=== PATIENT | male | born 1945 | race Caucasian/White ===

== ENCOUNTER 2018-07-14 11:22 | Emergency (ER) | payer MEDICARE ==
[2018-07-14 11:55] LABS: BASOPHILS % (AUTO) 0.3 %; EOSINOPHILS % (AUTO) 0.7 %; HGB - HEMOGLOBIN 14.7 g/dL (14.0-18.0); LYMPHOCYTES # (AUTO) 1.1 10^3/uL (1.5-3.5); LYMPHOCYTES % (AUTO) 17.3 %; MEAN CORPUSCULAR HEMOGLOBIN 33.5 pg (27.0-31.0); MEAN CORPUSCULAR HGB CONC 33.7 g/dL (32.0-36.0); MEAN CORPUSCULAR VOLUME 99.4 fL (80.0-94.0); MEAN PLATELET VOLUME 7.6 fL (7.4-11.4); MONOCYTES # (AUTO) 0.5 10^3/uL (0.0-1.0); NEUTROPHILS # (AUTO) 4.6 10^3/uL (1.5-6.6); NEUTROPHILS % (AUTO) 73.7 %; PLT - PLATELET COUNT 202 10^3/uL (130-450); RED BLOOD COUNT 4.39 10^6/uL (4.70-6.10); RED CELL DISTRIBUTION WIDTH 14.4 % (12.0-15.0); WHITE BLOOD COUNT 6.2 x10^3/uL (4.8-10.8)
[2018-07-14 12:05] LABS: ALBUMIN 4.5 g/dL (3.2-5.5); ALBUMIN/GLOBULIN RATIO 1.3 (1.0-2.2); BILIRUBIN,TOTAL 0.9 mg/dL (0.2-1.0); CALCIUM 9.4 mg/dL (8.5-10.3); TOTAL PROTEIN 7.9 g/dL (6.7-8.2)
--- NOTE | 2018-07-14 12:39 | XRAY Report ---
Reason: sob Procedure Date: 07/14/2018 Accession Number: [id number] / [id number] Procedure: XR - Chest 2 View X-Ray CPT Code: 31524 FULL RESULT: EXAM: CHEST RADIOGRAPHY EXAM DATE: 07/14/2018 12:13 PM. CLINICAL HISTORY: Shortness of breath. COMPARISON: None. TECHNIQUE: 2 views. FINDINGS: Lungs/Pleura: No focal opacities evident. No pleural effusion. No pneumothorax. Normal volumes. Mediastinum: Heart and mediastinal contours are unremarkable. Other: None. IMPRESSION: No acute cardiopulmonary abnormality. [facility]
--- NOTE | 2018-07-14 12:44 | ED Physician Documentation ---
History of Present Illness - Stated complaint Stated Complaint: SOA - Chief complaint Chief Complaint: Cardiac - History obtained from History obtained from: Patient - History of Present Illness Timing: Today Pain level max: 0 Pain level now: 0 Improved by: nothing Worsened by: nothing - Additonal information Additional information: Patient is a 72-year-old male who presents to the emergency department stating that he has felt short of breath and unable to exert himself fully for the past several days. Checked his heart rate today and it was in the 30s. No home medications. No syncope. Review of Systems Ten Systems: 10 systems reviewed and negative Constitutional: denies: Fever, Chills Ears: denies: Ear pain Nose: denies: Rhinorrhea / runny nose, Congestion Throat: denies: Sore throat Cardiac: denies: Chest pain / pressure Respiratory: denies: Cough GI: denies: Nausea, Vomiting, Diarrhea Skin: denies: Rash Musculoskeletal: denies: Neck pain, Back pain Neurologic: denies: Headache PD PAST MEDICAL HISTORY - Past Medical History Past Medical History: No Cardiovascular: Other - Past Surgical History Past Surgical History: No - Present Medications Home Medications: Ambulatory Orders Medication Instructions Recorded Confirmed No Known Home Medications 07/14/18 07/14/18 - Allergies Allergies/Adverse Reactions: Allergies Allergy/AdvReac Type Severity Reaction Status Date / Time No Known Drug Allergies Allergy Verified 07/14/18 12:31 - Social History Does the pt smoke?: No Smoking Status: Never smoker Does the pt drink ETOH?: Yes Does the pt have substance abuse?: No - Immunizations Immunizations are current?: Yes PD ED PE NORMAL - Vitals Vital signs reviewed: Yes - General General: Alert and oriented X 3, No acute distress - HEENT HEENT: Moist mucous membranes - Neck Neck: Supple, no meningeal sign - Cardiac Cardiac: Other (bradycardic) - Respiratory Respiratory: No respiratory distress, Clear bilaterally - Abdomen Abdomen: Soft, Non tender, Non distended - Derm Derm: Warm and dry - Neuro Neuro: Alert and oriented X 3 - Psych Psych: Normal mood, Normal affect Results - Vitals Vitals: Vital Signs - 24 hr 07/14/18 11:28 Temperature 36 C L Heart Rate 37 L Respiratory 18 Rate Blood Pressure 143/50 H O2 Saturation 98 Oxygen O2 Source Room air - EKG (time done) 1134 Rate: Rate (enter#) (36) Rhythm: Sinus bradycardia (with 2:1 block) [place]: Normal Intervals: LBBB Computer interpretation: Agree with computer - Labs Labs: Laboratory Tests 07/14/18 07/14/18 07/14/18 11:40 11:40 11:40 WBC 6.2 RBC 4.39 L Hgb 14.7 Hct 43.6 MCV 99.4 H MCH 33.5 H MCHC 33.7 RDW 14.4 Plt Count 202 MPV 7.6 Neut # (Auto) 4.6 Lymph # (Auto) 1.1 L Davison # (Auto) 0.5 Eos # (Auto) 0.0 Baso # (Auto) 0.0 Absolute Nucleated RBC 0.01 Nucleated RBC % 0.1 Sodium 139 Potassium 3.7 Chloride 103 Carbon Dioxide 28 Anion Gap 8.0 BUN 21 H Creatinine 1.0 Estimated GFR (MDRD) 74 L Glucose 99 Calcium 9.4 Total Bilirubin 0.9 AST 92 H ALT 139 H Alkaline Phosphatase 73 Troponin I < 0.04 Total Protein 7.9 Albumin 4.5 Globulin 3.4 Albumin/Globulin Ratio 1.3 Lipase 36 - Rads (name of study) cxr Radiology: Prelim report reviewed, EMP read contemporaneously, See rad report (no acute abnormality.) PD MEDICAL DECISION MAKING - ED course Complexity details: reviewed results, re-evaluated patient, considered differential, d/w patient ED course: Patient is a 72-year-old male who presents to the emergency department with sinus bradycardia for the past several days. Appears to be in a 2-1 heart block, mobitz II. Has a long history of a left bundle branch block. Is not on any medications. External pacer pads applied. Discussed the case with Dr. Masterson, cardiology at [facility] at 1245 and accepts in transfer. Will arrange a bed. Dr. Hassan 1345 - ICU graciously accepts in transfer as well. This document was made in part using voice recognition software. While efforts are made to proofread this document, sound alike and grammatical errors may occur. - Sepsis Event Vital Signs: Vital Signs - 24 hr 07/14/18 11:28 Temperature 36 C L Heart Rate 37 L Respiratory 18 Rate Blood Pressure 143/50 H O2 Saturation 98 Oxygen O2 Source Room air Departure - Departure Disposition: 02 Transfer Acute Care Hosp Clinical Impression: Heart block, Sinus bradycardia, Mobitz II Condition: Stable Discharge Date/Time: 07/14/18 13:54
[2018-07-14] MEDS ORDERED: SODIUM CHLORIDE 0.9% 1,000 ML IV ONE (12:56)
[2018-07-14 13:11] LABS: MAGNESIUM 2.4 mg/dL (1.7-2.8); PHOSPHORUS 3.2 mg/dL (2.5-4.6)
[2018-07-14 13:39] VITALS: BP 167/69
== END 2018-07-14 13:54 | disposition short-term general hospital (02) ==
LOC: ED 11:22
DX: I44.7 Left bundle-branch block, unspecified (principal); R00.1 Bradycardia, unspecified; I44.1 Atrioventricular block, second degree
CPT/HCPCS: 36415; 71046; 80053; 83690; 83735; 84100; 84484; 85025; 92953; 93005; 99284

== ENCOUNTER 2018-07-14 13:57 | Outpatient (CLI) | payer MEDICARE | END 2018-07-14 13:58 | disposition short-term general hospital (02) | LOC: EMS 13:57 | PROVIDERS: ATTEND Surgery | DX: R00.1 Bradycardia, unspecified (principal); R42 Dizziness and giddiness | CPT/HCPCS: A0425; A0426 ==

== ENCOUNTER 2018-08-18 07:53 | Outpatient (CLI) | payer MEDICARE ==
--- NOTE | 2018-08-18 11:07 | CT Report ---
Reason: 1CM NODULE RIGHT LUNG BASE ON CXR Procedure Date: 08/18/2018 Accession Number: [id number] / [id number] Procedure: CT - Chest W/O CPT Code: FULL RESULT: EXAM: CT CHEST EXAM DATE: 08/18/2018 08:55 AM. CLINICAL HISTORY: 1 cm nodule right lung base on chest x-ray. COMPARISONS: XR CHEST 2 VIEWS 07/16/2018 5:45 AM XR CHEST 1 VIEW 07/15/2018 3:11 PM. TECHNIQUE: Routine helical CT imaging was performed through the chest. IV contrast: None. Reconstructions: Coronal and sagittal. In accordance with CT protocol optimization, one or more of the following dose reduction techniques were utilized for this exam: automated exposure control, adjustment of mA and/or KV based on patient size, or use of iterative reconstructive technique. FINDINGS: Lungs/Pleura: There are 2 peripheral right lower lobe nodules. One more posteriorly is well circumscribed and measures 7 mm, abutting the pleura. The other is triangular in shape and arises from the fissure measuring up to 9 mm. The summation of the 2 in the anterior posterior projection is felt to account for the finding on x-ray. Abutting the pleura posteriorly in the left lower lobe is an 8 mm nodule. Scarring/atelectasis is seen on the left. No bronchial thickening, consolidation, or edema. Pulmonary vasculature is normal. No pericardial or pleural effusion. No pneumothorax. Mediastinum: Normal. No adenopathy or masses. The heart and great vessels are normal. Bones: Unremarkable. Visualized Abdomen: Unremarkable. Other: Dual-lead pacemaker noted. IMPRESSION: Per Fleischner Society criteria, recommend follow-up CT in 3 months. [facility]
== END 2018-08-18 07:54 | disposition home or self-care (01) ==
LOC: DI 07:53
PROVIDERS: ATTEND Family Medicine
DX: R91.8 Other nonspecific abnormal finding of lung field (principal)
CPT/HCPCS: 71250

== ENCOUNTER 2019-01-04 08:47 | Outpatient (CLI) | payer MEDICARE ==
--- NOTE | 2019-01-04 11:23 | CT Report ---
Reason: OTHER DISORDERS OF LUNG Procedure Date: 01/04/2019 Accession Number: [id number] / [id number] Procedure: CT - CHEST WO CPT Code: FULL RESULT: EXAM: CT CHEST EXAM DATE: 01/04/2019 09:00 AM. CLINICAL HISTORY: Other disorders of lung. COMPARISONS: CHEST W/O 08/18/2018 8:19 AM. TECHNIQUE: Routine helical CT imaging was performed through the chest. IV contrast: None. Reconstructions: Coronal and sagittal. In accordance with CT protocol optimization, one or more of the following dose reduction techniques were utilized for this exam: automated exposure control, adjustment of mA and/or KV based on patient size, or use of iterative reconstructive technique. FINDINGS: Lungs/Pleura: The previously described peripheral left lower lobe triangular opacity is decreased in size to 7 mm, previously 9 mm on image 56 series 4, appearance suggestive of scarring. The previously identified well rounded pleural-based 7 mm nodule is unchanged in size, no spiculations on image 50 series 4. There is a 2 mm nodule in the right upper lobe on image 28, retrospectively unchanged. Stable triangular 8 mm opacity along the right major fissure image 45. Stable 7 mm pleural-based well-rounded nodule image 43 right lower lobe. No new consolidation or mass. No pleural effusion or pneumothorax. Mediastinum: Stable appearance of pacemaker and cardiac chambers, suspect left ventricular hypertrophy. No mediastinal or hilar lymphadenopathy. Bones: Unremarkable. Visualized Abdomen: Unremarkable. Other: None. IMPRESSION: Persistence of probably benign pulmonary nodules measuring up to 0.7 cm, incidental discovery. Recommend follow-up of the described nodule(s) according to the following guidelines: Fleischner Society Recommendations 2017 MacMahon et al. Radiology 2017 Solid Nodules-Low and High Risk Patients: 6-8mm (multiple) additional follow-up CT in 18-24 months [facility]
== END 2019-01-04 08:48 | disposition home or self-care (01) ==
LOC: DI 08:47
PROVIDERS: ATTEND Family Medicine
DX: J98.4 Other disorders of lung (principal)
CPT/HCPCS: 71250